=== PATIENT | female | born 1985 | race Caucasian/White ===

== ENCOUNTER → 2016-09-19 | Outpatient (CLI) | payer OTHER ==
[2016-09-19 10:15] LABS: BASO # 0.1 K/mm3 (0.0-0.2); BASO % 1.6 % (0.0-1.0); EOS # 0.2 K/mm3 (0.0-0.50); EOS % 2.3 % (0.0-3.0); LARGE UNSTAINED CELL # 0.2 K/mm3 (0.0-0.4); LARGE UNSTAINED CELL % 2.9 % (0.0-4.0); LYMPH # 3.2 K/mm3 (1.5-4.5); LYMPH % 38.1 % (24.0-44.0); MEAN CORPUSCULAR HGB CONC 33.4 g/dl (32.0-36.5); MEAN CORPUSCULAR VOLUME 83.9 fl (80.0-96.0); MONO # 0.5 K/mm3 (0.0-0.8); NEUTROPHILS # 3.9 K/mm3 (1.8-7.7); NEUTROPHILS % 49.1 % (36.0-66.0); PLATELET COUNT, AUTOMATED 297 k/mm3 (150-450); WHITE BLOOD COUNT 7.9 K/mm3 (4.0-10.0)
[2016-09-19 10:41] LABS: ALBUMIN 3.8 GM/DL (3.2-5.2); ALBUMIN/GLOBULIN RATIO 0.95 (1.00-1.93); ALKALINE PHOSPHATASE 31 U/L (45-117); ALT/SGPT 47 U/L (12-78); ANION GAP 4 MEQ/L (8-16); AST/SGOT 25 U/L (15-37); BILIRUBIN,TOTAL 0.3 MG/DL (0.2-1.0); BLOOD UREA NITROGEN 12 MG/DL (7-18); CARBON DIOXIDE LEVEL 33 MEQ/L (21-32); CHLORIDE LEVEL 105 MEQ/L (98-107); CHOLESTEROL LEVEL 202 MG/DL (<200); CREATININE FOR GFR 0.73 MG/DL (0.55-1.02); GLOMERULAR FILTRATION RATE > 60.0 (>60); GLUCOSE, FASTING 100 MG/DL (70-105); POTASSIUM SERUM 4.3 MEQ/L (3.5-5.1); SODIUM LEVEL 142 MEQ/L (136-145); TOTAL PROTEIN 7.8 GM/DL (6.4-8.2); TRIGLYCERIDES LEVEL 182 MG/DL (<150)
== END ==
LOC: M LAB 09:50
PROVIDERS: ATTEND Family Medicine
DX: E03.9 Hypothyroidism, unspecified (principal); I10 Essential (primary) hypertension

== ENCOUNTER → 2017-11-20 | Outpatient (CLI) | payer OTHER ==
[2017-11-20 09:52] LABS: BASO # 0.1 10^3/uL (0.0-0.2); BASO % 0.6 % (0.0-1.0); EOS # 0.4 10^3/uL (0.0-0.50); EOS % 4.1 % (0.0-3.0); HEMATOCRIT 39.5 % (36.0-47.0); HEMOGLOBIN 12.8 g/dl (12.0-16.0); IMMATURE GRANULOCYTE % 0.3 % (0-3.0); LYMPH # 3.5 10^3/uL (1.5-4.5); LYMPH % 36.6 % (24.0-44.0); MEAN CORPUSCULAR HEMOGLOBIN 27.3 pg (27.0-33.0); MEAN CORPUSCULAR HGB CONC 32.4 g/dl (32.0-36.5); MEAN CORPUSCULAR VOLUME 84.2 fl (80.0-96.0); MONO # 0.7 10^3/uL (0.0-0.8); MONO % 7.4 % (0.0-5.0); NEUTROPHILS # 4.8 10^3/uL (1.8-7.7); PLATELET COUNT, AUTOMATED 319 10^3/uL (150-450); RED BLOOD COUNT 4.69 10^6/uL (4.00-5.40); RED CELL DISTRIBUTION WIDTH 13.4 % (11.5-14.5); WHITE BLOOD COUNT 9.5 10^3/uL (4.0-10.0)
[2017-11-20 10:30] LABS: ALBUMIN 3.4 GM/DL (3.2-5.2); ALBUMIN/GLOBULIN RATIO 0.85 (1.00-1.93); ALKALINE PHOSPHATASE 25 U/L (45-117); ALT/SGPT 54 U/L (12-78); ANION GAP 7 MEQ/L (8-16); AST/SGOT 55 U/L (7-37); BILIRUBIN,TOTAL 0.3 MG/DL (0.2-1.0); BLOOD UREA NITROGEN 16 MG/DL (7-18); CALCIUM LEVEL 8.9 MG/DL (8.5-10.1); CARBON DIOXIDE LEVEL 31 MEQ/L (21-32); CHLORIDE LEVEL 102 MEQ/L (98-107); CHOLESTEROL LEVEL 187 MG/DL (<200); CHOLESTEROL RISK RATIO 4.348 (<5); CREATININE FOR GFR 0.71 MG/DL (0.55-1.30); FREE T4 1.24 NG/DL (0.76-1.46); GLOMERULAR FILTRATION RATE > 60.0 (>60); GLUCOSE, FASTING 113 MG/DL (70-100); HDL CHOLESTEROL 43 MG/DL (>40); LDL CHOLESTEROL 104.8 MG/DL (<100); NON-HDL-C 144 MG/DL; POTASSIUM SERUM 3.9 MEQ/L (3.5-5.1); SODIUM LEVEL 140 MEQ/L (136-145); TOTAL PROTEIN 7.4 GM/DL (6.4-8.2); TRIGLYCERIDES LEVEL 196 MG/DL (<150)
== END ==
LOC: M LAB 09:11
DX: I10 Essential (primary) hypertension (principal); E03.9 Hypothyroidism, unspecified
CPT/HCPCS: 84443

== ENCOUNTER → 2018-10-04 | Outpatient (CLI) | payer BC ==
[2018-10-04 11:02] LABS: BLOOD UREA NITROGEN 12 MG/DL (7-18); CALCIUM LEVEL 9.2 MG/DL (8.5-10.1); CARBON DIOXIDE LEVEL 28 MEQ/L (21-32); CHLORIDE LEVEL 103 MEQ/L (98-107); FREE T4 1.14 NG/DL (0.76-1.46); GLOMERULAR FILTRATION RATE > 60.0 (>60); GLUCOSE, FASTING 105 MG/DL (70-100); POTASSIUM SERUM 4.4 MEQ/L (3.5-5.1); SODIUM LEVEL 139 MEQ/L (136-145)
== END ==
LOC: M LAB 09:58
PROVIDERS: ATTEND Physician Assistant
DX: I10 Essential (primary) hypertension (principal); E03.9 Hypothyroidism, unspecified

== ENCOUNTER → 2018-12-21 | Outpatient (CLI) | payer BC ==
[2018-12-21 11:02] LABS: FREE T4 1.14 NG/DL (0.76-1.46); THYROID STIMULATING HORMONE 4.05 uIU/ML (0.358-3.740)
== END ==
LOC: M LAB 09:48
PROVIDERS: ATTEND Physician Assistant
DX: E03.9 Hypothyroidism, unspecified (principal)

== ENCOUNTER → 2019-06-10 | Outpatient (CLI) | payer BC ==
[2019-06-10 11:57] LABS: ALBUMIN 3.2 GM/DL (3.2-5.2); ALT/SGPT 24 U/L (12-78); BILIRUBIN,TOTAL 0.2 MG/DL (0.2-1.0); BLOOD UREA NITROGEN 13 MG/DL (7-18); CALCIUM LEVEL 9.4 MG/DL (8.5-10.1); CARBON DIOXIDE LEVEL 29 MEQ/L (21-32); CHLORIDE LEVEL 102 MEQ/L (98-107); CHOLESTEROL LEVEL 164 MG/DL (<200); CHOLESTEROL RISK RATIO 3.215 (<5); CREATININE FOR GFR 0.66 MG/DL (0.55-1.30); FREE T4 1.15 NG/DL (0.76-1.46); GLOMERULAR FILTRATION RATE > 60.0 (>60); GLUCOSE, FASTING 117 MG/DL (70-100); HDL CHOLESTEROL 51 MG/DL (>40); LDL CHOLESTEROL 81 MG/DL (<100); NON-HDL-C 113 MG/DL; POTASSIUM SERUM 3.7 MEQ/L (3.5-5.1); SODIUM LEVEL 140 MEQ/L (136-145); TOTAL PROTEIN 7.7 GM/DL (6.4-8.2); TRIGLYCERIDES LEVEL 160 MG/DL (<150)
== END ==
LOC: M LAB 09:40
PROVIDERS: ATTEND Physician Assistant
DX: I10 Essential (primary) hypertension (principal)

== ENCOUNTER → 2019-09-09 | Outpatient (CLI) | payer BC ==
[2019-09-09 13:09] LABS: ALBUMIN 3.1 GM/DL (3.2-5.2); ALT/SGPT 29 U/L (12-78); BILIRUBIN,TOTAL 0.2 MG/DL (0.2-1.0); BLOOD UREA NITROGEN 13 MG/DL (7-18); CALCIUM LEVEL 8.9 MG/DL (8.5-10.1); CARBON DIOXIDE LEVEL 28 MEQ/L (21-32); CHLORIDE LEVEL 101 MEQ/L (98-107); CREATININE FOR GFR 0.74 MG/DL (0.55-1.30); FREE T4 1.26 NG/DL (0.76-1.46); GLOMERULAR FILTRATION RATE > 60.0 (>60); GLUCOSE, FASTING 105 MG/DL (70-100); POTASSIUM SERUM 3.8 MEQ/L (3.5-5.1); SODIUM LEVEL 137 MEQ/L (136-145); TOTAL PROTEIN 7.7 GM/DL (6.4-8.2)
[2019-09-09 13:23] LABS: HEMOGLOBIN A1c 8.6 %
== END ==
LOC: M LAB 11:41
PROVIDERS: ATTEND Family Medicine
DX: R73.01 Impaired fasting glucose (principal)

== ENCOUNTER → 2019-12-07 | Outpatient (CLI) | payer BC ==
[2019-12-07 13:13] LABS: CREATININE, URINE 33.8 MG/DL; MALB URINE SIEMENS 14.6 MG/L; MAU/CREAT RATIO 43.1 MCG/MG (0.0-30.0)
[2019-12-07 13:14] LABS: ALBUMIN 3.3 GM/DL (3.2-5.2); ALT/SGPT 34 U/L (12-78); BILIRUBIN,TOTAL 0.4 MG/DL (0.2-1.0); BLOOD UREA NITROGEN 12 MG/DL (7-18); CALCIUM LEVEL 9.3 MG/DL (8.5-10.1); CARBON DIOXIDE LEVEL 30 MEQ/L (21-32); CHLORIDE LEVEL 100 MEQ/L (98-107); CREATININE FOR GFR 0.63 MG/DL (0.55-1.30); FREE T4 1.28 NG/DL (0.76-1.46); GLOMERULAR FILTRATION RATE > 60.0 (>60); GLUCOSE, FASTING 112 MG/DL (70-100); POTASSIUM SERUM 3.6 MEQ/L (3.5-5.1); SODIUM LEVEL 134 MEQ/L (136-145); TOTAL PROTEIN 7.9 GM/DL (6.4-8.2)
[2019-12-07 13:25] LABS: HEMOGLOBIN A1c 8.2 %
== END ==
LOC: M LAB 11:35
PROVIDERS: ATTEND Family Medicine
DX: E03.9 Hypothyroidism, unspecified (principal); E11.9 Type 2 diabetes mellitus without complications

== ENCOUNTER → 2020-05-11 | Outpatient (CLI) | payer BC ==
[2020-05-11 11:39] LABS: ALBUMIN 3.4 GM/DL (3.2-5.2); ALT/SGPT 36 U/L (12-78); BILIRUBIN,TOTAL 0.3 MG/DL (0.2-1.0); BLOOD UREA NITROGEN 14 MG/DL (7-18); CALCIUM LEVEL 9.2 MG/DL (8.5-10.1); CARBON DIOXIDE LEVEL 24 MEQ/L (21-32); CHLORIDE LEVEL 103 MEQ/L (98-107); CREATININE FOR GFR 0.68 MG/DL (0.55-1.30); FREE T4 1.35 NG/DL (0.76-1.46); GLOMERULAR FILTRATION RATE > 60.0 (>60); GLUCOSE, FASTING 123 MG/DL (70-100); POTASSIUM SERUM 4.6 MEQ/L (3.5-5.1); SODIUM LEVEL 138 MEQ/L (136-145); TOTAL PROTEIN 7.8 GM/DL (6.4-8.2)
[2020-05-11 13:00] LABS: HEMOGLOBIN A1c 8.4 %
== END ==
LOC: M LAB 09:38
PROVIDERS: ATTEND Nurse Practitioner Family
DX: E03.9 Hypothyroidism, unspecified (principal); E11.9 Type 2 diabetes mellitus without complications

== ENCOUNTER → 2020-09-21 | Outpatient (CLI) | payer BC ==
[2020-09-21 11:32] LABS: HEMOGLOBIN A1c 7.2 %
[2020-09-21 11:53] LABS: MALB URINE SIEMENS 22.2 MG/L; MAU/CREAT RATIO 12.9 MCG/MG (0.0-30.0)
[2020-09-21 12:02] LABS: ALBUMIN 3.3 GM/DL (3.2-5.2); ALT/SGPT 38 U/L (12-78); BILIRUBIN,TOTAL 0.2 MG/DL (0.2-1.0); BLOOD UREA NITROGEN 13 MG/DL (7-18); CALCIUM LEVEL 9.4 MG/DL (8.5-10.1); CARBON DIOXIDE LEVEL 29 MEQ/L (21-32); CHLORIDE LEVEL 103 MEQ/L (98-107); CHOLESTEROL LEVEL 199 MG/DL (<200); CHOLESTEROL RISK RATIO 3.901 (<5); CREATININE FOR GFR 0.63 MG/DL (0.55-1.30); FREE T4 1.36 NG/DL (0.76-1.46); GLOMERULAR FILTRATION RATE > 60.0 (>60); GLUCOSE, FASTING 141 MG/DL (70-100); HDL CHOLESTEROL 51 MG/DL (>40); LDL CHOLESTEROL 108 MG/DL (<100); NON-HDL-C 148 MG/DL; POTASSIUM SERUM 4.3 MEQ/L (3.5-5.1); SODIUM LEVEL 138 MEQ/L (136-145); TOTAL PROTEIN 7.7 GM/DL (6.4-8.2); TRIGLYCERIDES LEVEL 201 MG/DL (<150)
== END ==
LOC: M LAB 10:15
PROVIDERS: ATTEND Nurse Practitioner Family
DX: E03.9 Hypothyroidism, unspecified (principal); E11.9 Type 2 diabetes mellitus without complications

== ENCOUNTER 2021-01-29 16:19 | Inpatient (IN) | payer BC ==
[~2021-01-29] VITALS: Ht 177.8 cm; Wt 121.5 kg
[2021-01-29] MEDS ORDERED: TRI-TAB PO (16:25)
[2021-01-29] MEDS ORDERED: CHLO125TA PO (16:25)
[2021-01-29] MEDS ORDERED: LISI10TA22 PO (16:25)
[2021-01-29] MEDS ORDERED: METF-838 PO (16:25)
[2021-01-29] MEDS ORDERED: LEVO125T4 PO (16:25)
[2021-01-29 17:07] LABS: HEMATOCRIT 41.9 % (36.0-47.0); HEMOGLOBIN 13.5 g/dl (12.0-15.5); MEAN CORPUSCULAR HEMOGLOBIN 26.8 pg (27.0-33.0); MEAN CORPUSCULAR HGB CONC 32.2 g/dl (32.0-36.5); MEAN CORPUSCULAR VOLUME 83.1 fl (80.0-96.0); PLATELET COUNT, AUTOMATED 343 10^3/uL (150-450); RED BLOOD COUNT 5.04 10^6/uL (4.00-5.40)
[2021-01-29 17:10] LABS: WHITE BLOOD COUNT 20.3 10^3/uL (4.0-10.0)
[2021-01-29 17:33] LABS: ATYPICAL LYMPH 4 % (0-5); BASOPHILS 1 % (0-1); LYMPHOCYTES 15 % (16-44); MONOCYTES 6 % (0-5); NEUTROPHILS 72 % (28-66); PLATELET ESTIMATE NORMAL (NORMAL)
[2021-01-29 17:41] LABS: ALBUMIN 3.3 GM/DL (3.2-5.2); BILIRUBIN,DIRECT 0.1 MG/DL (0.0-0.2); BILIRUBIN,TOTAL 0.4 MG/DL (0.2-1.0)
[2021-01-29] MEDS ORDERED: ISOVUE-370 76% 100ML VIAL As Ordered ONE (18:39)
[2021-01-29] MEDS ORDERED: KETOROLAC 30 MG/ML 1ML VIAL IV ONE (18:40)
[2021-01-29] MEDS ORDERED: ONDANSETRON 4MG/2ML VIAL IV ONE (18:40)
[2021-01-29] MEDS ORDERED: NS 1,000 ML IV ONE (18:40)
--- NOTE | 2021-01-29 19:29 | REPVR ---
PROCEDURE INFORMATION: Exam: CT Abdomen And Pelvis With Contrast Exam date and time: 01/29/2021 6:49 PM Age: 35 years old Clinical indication: Abdominal pain; Additional info: Rlq pain, leukocytosis vomiting, RO appendicitis TECHNIQUE: Imaging protocol: Computed tomography of the abdomen and pelvis with contrast. Radiation optimization: All CT scans at this facility use at least one of these dose optimization techniques: automated exposure control; mA and/or kV adjustment per patient size (includes targeted exams where dose is matched to clinical indication); or iterative reconstruction. Contrast material: ISOVUE 370; Contrast volume: 100 ml; Contrast route: INTRAVENOUS (IV); COMPARISON: No relevant prior studies available. FINDINGS: Liver: There is a diffuse decrease in hepatic parenchymal density, consistent with steatosis. Inflammatory changes in the hepatic flexure likely reactive related to adjacent gallbladder pathology. Primary colonic inflammation/infection not excluded in to be evaluated clinically. Gallbladder and bile ducts: Diffuse thickening of the gallbladder wall with pericholecystic inflammation and minimal pericholecystic fluid. No discrete calculi demonstrated. Findings worrisome for acute cholecystitis. Pancreas: Normal. No ductal dilation. Spleen: Normal. No splenomegaly. Adrenal glands: Normal. No mass. Kidneys and ureters: Normal. No hydronephrosis. Stomach and bowel: See "Liver" finding. Appendix: No evidence of appendicitis. Intraperitoneal space: There is minimal fluid in the cul-de-sac most likely physiologic. Clinical correlation to exclude other causes of cul-de-sac fluid suggested. Vasculature: Unremarkable. No abdominal aortic aneurysm. Lymph nodes: Unremarkable. No enlarged lymph nodes. Urinary bladder: Unremarkable as visualized. Reproductive: Unremarkable as visualized. Bones/joints: Moderate central spinal stenosis L3-L4 and severe central spinal stenosis L4-L5. Mild disc space narrowing L5-S1. Soft tissues: Unremarkable. IMPRESSION: 1. There is a diffuse decrease in hepatic parenchymal density, consistent with steatosis. 2. Diffuse thickening of the gallbladder wall with pericholecystic inflammation and minimal pericholecystic fluid. No discrete calculi demonstrated. Findings worrisome for acute cholecystitis. 3. Inflammatory changes in the hepatic flexure likely reactive related to adjacent gallbladder pathology. Primary colonic inflammation/infection not excluded in to be evaluated clinically. Electronically signed by: Kang Vance On 01/29/2021 19:28:58 PM
[2021-01-29] MEDS ORDERED: PIPERACILLIN/TAZOBACTAM SOD 3.375 GM in D5W MINI-BAG PLUS 50 ML IV ONE (19:45)
--- NOTE | 2021-01-29 20:34 | HPEPDOC ---
[facility] Medical History & Physical Date of Admission January 29, 2021 Date of Service: January 29, 2021 History and Physical CHIEF COMPLAINT: vomiting HISTORY OF PRESENT ILLNESS: 35 yo F with a PMHx of DM2, HTN, hypothyroidism, presented to the ER with a 24 hour history of NBNB vomiting and diarrhea with associated RUQ sharp stabbing abdominal olvera and reduced appetite. Patient's last meal was a steak with rice. She denies chest pain, shortness of breath, palpitations, hemoptysis or fevers/chills. She is afebrile, but lab work indicates a WBC of 20.5. No transaminitis or lipase elevation noted. CT abdomen and pelvis with IV contrast in the ER showing findings concerning for acute cholecystitis. Dr. Alfaro was consulted from the ER. Patient will be admitted to hospitalist service for IV antibiotics and pain control with surgical consultation. PAST MEDICAL HISTORY: DM2 HTN Hypothyroidism PAST SURGICAL HISTORY: [place] tooth extraction SOCIAL HISTORY: Denies etoh use Denies smoking/tobacco use Denies illicit drug use FAMILY HISTORY: reviewed with patient, denies pertinent history ALLERGIES: Please see below. REVIEW OF SYSTEMS: 10 point ROS was completed, relevant findings are noted in the HPI. HOME MEDICATIONS: Please see below. PHYSICAL EXAMINATION: VITAL SIGNS: please see below GENERAL APPEARANCE: [appears well, non toxic, not in distress, comfortable. HEENT: PERRLA, EOMI CARDIOVASCULAR: RRR, normal S1, S2 LUNGS: CTAB, good inspiratory effort, no rales or wheezes. ABDOMEN: positive Multani's sign, non distended, no guarding, no rigidity. No organomegaly identified, BS+. MUSCULOSKELETAL: normal ROM, no joint deformity EXTREMITIES: no edema, no cyanosis NEUROLOGICAL: no focal neuro deficits. CN2-12 intact. LABORATORY DATA: See below. IMAGING: CT abdomen pelvis with IV contrast (01/29/21): 1. There is a diffuse decrease in hepatic parenchymal density, consistent with steatosis. 2. Diffuse thickening of the gallbladder wall with pericholecystic inflammation and minimal pericholecystic fluid. No discrete calculi demonstrated. Findings worrisome for acute cholecystitis. 3. Inflammatory changes in the hepatic flexure likely reactive related to adjacent gallbladder pathology. Primary colonic inflammation/infection not excluded in to be evaluated clinically. MICROBIOLOGY: Please see below. ASSESSMENT: 35 yo F with a PMHx of DM2, HTN, hypothyroidism, presented to the ER with a 24 hour history of NBNB vomiting and diarrhea with associated RUQ sharp stabbing abdominal olvera and reduced appetite. Patient admitted for management of acute cholecystitis with IV antibiotics, pain control with surgical consultation. . PLAN: #RUQ pain 2/2 likely acute cholecystis - patient is afebrile, with WBC 20.5 - CT showing pericholecystic fluid, inflammation concerning for acute cholecystitis - Dr. Alfaro was consulted from the ER. - Recommendations appreciated, consult placed - patient started on zosyn. - ordered blood cultures, abx had been administered. - bowel rest - pain control with morphine for breakthrough, oxycodone and tylenol prn DM2 - ISS, FSBS AC and HS - takes metformin at home - hypoglycemia protocol HTN - takes chlorthalidone 25 mg daily and lisinopril 10 mg daily - is on IVF while NPO, will hold chlorthalidone - c/w lisinopril. BP appropriate at this time, improved with pain control Hypothyroidism - resume home dose levothyroxine DVT ppx: heparin 5000 units q8h, TEDs. Dispo: pending clinical improvement. Vital Signs Vital Signs Date Time Temp Pulse Resp B/P (MAP) Pulse Ox O2 Delivery O2 Flow Rate FiO2 01/29/21 19:23 97.9 109 18 122/66 (84) 96 Room Air Laboratory Data Labs 24H Laboratory Tests 2 01/29/21 16:39: Neutrophils (%) (Auto) , Nucleated Red Blood Cells % (auto) 0.0, Neutrophils 72H, Band Neutrophils 2, Lymphocytes (Manual) 15L, Monocytes (Manual) 6H, Basophils (Manual) 1, Atypical Lymphocytes 4, Platelet Estimate NORMAL, Total Bilirubin 0.4, Direct Bilirubin 0.1, Aspartate Amino Transf (AST/SGOT) 15, A lanine Aminotransferase (ALT/SGPT) 17, Alkaline Phosphatase 32L, Total Protein 8.0, Albumin 3.3, Albumin/Globulin Ratio 0.7L, Lipase 66L 01/29/21 16:58: POC Glucose (Misc Panel) 185H, POC Sodium (Misc Panel) 137, POC Potassium (Misc Panel) 3.1L, POC Chloride (Misc Panel) 96L, POC Total CO2 (Misc Panel) 28.0H, POC Blood Urea Nitrogen (Misc Panel 10, POC Ionized Calcium (Misc Panel) 4.7, POC Creatinine (Misc Panel) 0.7, POC Hematocrit (Misc Panel) 42.0 01/29/21 17:00: POC Beta HCG, Quantitative < 5.0 01/29/21 18:41: Coronavirus (COVID-19)(PCR) NEGATIVE CBC/BMP Laboratory Tests 01/29/21 16:39 Home Medications Scheduled Chlorthalidone (Chlorthalidone) 25 Mg Tablet, 25 MG PO DAILY Levothyroxine Sodium (Levothyroxine Sodium) 125 Mcg Tablet, 125 MCG PO DAILY Lisinopril (Lisinopril) 10 Mg Tablet, 10 MG PO DAILY Metformin HCl (Metformin HCl ER) 500 Mg Tab.er.24h, 1,000 MG PO BID Norgestimate-Ethinyl Estradiol (Tri-Sprintec Tablet) 1 Each Tablet, 1 TAB PO QHS Allergies Coded Allergies: No Known Drug Allergies (Verified Allergy, Unknown, 01/29/21) A-FIB/CHADSVASC A-FIB History Current/History of A-Fib/PAF?: No Current PO Anticoag Therapy: No HAILEY OAKLEY MD January 29, 2021 20:34
[2021-01-29] MEDS ORDERED: DEXTROSE 50% 50 ML SYRINGE IV PRN (20:35)
[2021-01-29] MEDS ORDERED: GLUCOSE 4GM CHEW TABLET PO PRN (20:35)
[2021-01-29] MEDS ORDERED: ACETAMINOPHEN TAB 650MG DOSE (2X325MG) PO PRN (20:35)
[2021-01-29] MEDS ORDERED: MOM 30ML SUSPENSION UDC PO PRN (20:35)
[2021-01-29] MEDS ORDERED: oxyCODONE 5MG TAB PO PRN (20:35)
[2021-01-29] MEDS ORDERED: MAALOX 30 ML SUSP *UDC PO PRN (20:35)
[2021-01-29] MEDS ORDERED: MORPHINE 4 MG/ML 1ML VIAL/SYRINGE (J2270) IV PRN (20:35)
[2021-01-29] MEDS ORDERED: GLUCAGON INJ 1MG VIAL SC PRN (20:35)
[2021-01-29] MEDS: HumaLOG INSULIN (NovoLOG) PER UNIT SC SCH (21:32)
[2021-01-29] MEDS: LR 1,000 ML IV SCH (21:33)
[2021-01-29] MEDS: DOCUSATE SODIUM 100MG CAPSULE PO SCH (21:34)
[2021-01-29 22:18] VITALS: BP 119/70
[2021-01-29] MEDS: PIPERACILLIN/TAZOBACTAM SOD 4.5 GM in D5W MINI-BAG PLUS 50 ML IV SCH (23:48)
[2021-01-30 05:51] LABS: BASO # 0.1 10^3/uL (0.0-0.2); BASO % 0.5 % (0.0-1.0); EOS # 0.2 10^3/uL (0.0-0.5); EOS % 1.2 % (0.0-3.0); HEMATOCRIT 36.8 % (36.0-47.0); HEMOGLOBIN 11.9 g/dl (12.0-15.5); LYMPH # 3.1 10^3/uL (1.5-5.0); LYMPH % 22.1 % (24.0-44.0); MEAN CORPUSCULAR HEMOGLOBIN 27.5 pg (27.0-33.0); MEAN CORPUSCULAR HGB CONC 32.3 g/dl (32.0-36.5); MONO # 1.2 10^3/uL (0.0-0.8); MONO % 8.3 % (2.0-8.0); NEUTROPHILS # 9.3 10^3/uL (1.5-8.5); NEUTROPHILS % 67.6 % (36.0-66.0); PLATELET COUNT, AUTOMATED 271 10^3/uL (150-450); RED BLOOD COUNT 4.33 10^6/uL (4.00-5.40); WHITE BLOOD COUNT 13.8 10^3/uL (4.0-10.0)
[2021-01-30 06:00] VITALS: BP 135/79
[2021-01-30] MEDS: HEPARIN SOD (PORCINE) 5000UNITS/ML 1ML VIAL/SYRINGE SC SCH ×3 (06:00→21:00)
[2021-01-30 06:26] LABS: ALBUMIN 2.7 GM/DL (3.2-5.2); ALT/SGPT 16 U/L (12-78); BILIRUBIN,TOTAL 0.4 MG/DL (0.2-1.0); BLOOD UREA NITROGEN 11 MG/DL (7-18); CALCIUM LEVEL 8.9 MG/DL (8.5-10.1); CARBON DIOXIDE LEVEL 29 MEQ/L (21-32); CHLORIDE LEVEL 104 MEQ/L (98-107); CREATININE FOR GFR 0.69 MG/DL (0.55-1.30); GLOMERULAR FILTRATION RATE > 60.0 (>60); GLUCOSE, FASTING 171 MG/DL (70-100); MAGNESIUM LEVEL 1.6 MG/DL (1.8-2.4); POTASSIUM SERUM 3.3 MEQ/L (3.5-5.1); SODIUM LEVEL 140 MEQ/L (136-145); TOTAL PROTEIN 6.5 GM/DL (6.4-8.2)
[2021-01-30] MEDS: PIPERACILLIN/TAZOBACTAM SOD 4.5 GM in D5W MINI-BAG PLUS 50 ML IV SCH ×3 (06:37→18:46)
[2021-01-30] MEDS: LEVOTHYROXINE 125MCG TABLET (0.125MG) PO SCH (06:37)
[2021-01-30] MEDS: HumaLOG INSULIN (NovoLOG) PER UNIT SC SCH ×4 (07:30→20:55)
[2021-01-30] MEDS ORDERED: KETOROLAC 30 MG/ML 1ML VIAL IV PRN (07:30)
[2021-01-30] MEDS ORDERED: MAG SULF 1GM/100ML (MAG RUN) 1 GM in IV 1 EA IV ONE (08:00)
[2021-01-30] MEDS ORDERED: POTASSIUM CHLORIDE 10 MEQ SR TABLET PO ONE (08:00)
[2021-01-30] MEDS ORDERED: CHLORTHALIDONE 25 MG TAB PO SCH (09:00)
[2021-01-30] MEDS: DOCUSATE SODIUM 100MG CAPSULE PO SCH ×2 (09:52→20:58)
[2021-01-30] MEDS: LR 1,000 ML IV SCH (09:54)
--- NOTE | 2021-01-30 11:28 | IPNPDOC ---
Text Note Date of Service The patient was seen on 01/30/21. NOTE S Patient was seen and examined at bedside this morning. She reported her abd pain has improved from 10/10 to 8/10 today. Her nausea and vomiting has resolved after her admission. She denied recent fever, chills, CP, SOB, leg swelling and urinary symptoms, but noted 1 episode of loose stool this morning. She reported that she gets occasional diarrhea 1-2 times monthly. She has tolerated clear liquid diet well. O VITAL SIGNS: See below GENERAL APPEARANCE: Revealed 35 y/o F laying supine on bed, alert & oriented x3, in no Acute Distress. HEENT Exam: Normocephalic and atraumatic, PERRL, conjunctiva & lids normal, EOMI, anicteric sclera, mucous membr. moist/pink, pharynx normal, nares patent. Dental cavities noted NECK: Supple without lymphadenopathy, JVD, thyromegaly LUNGS: Clear to auscultation bilaterally with full breath sounds without rales, wheezing, and crackles. CARDIOVASCULAR: Regular rate and rhythm, normal S1 & S2 without gallops, murmurs, rubs ABDOMEN: Soft, RUQ tender to light palpation, RLQ and epigastric mildly tender to deep palpation, non-distended, bowel sounds present. EXTREMITIES: 2+ pulses in all extremities. No clubbing, cyanosis, edema, tenderness SKIN: Normal turgor and temperature. No rash, lesion MUSCULOSKELETAL: Moving all extremities without tenderness. NEUROLOGICAL: Normal speech with no signs of gross focal neurologic deficit. PSYCHIATRIC: Normal mood and affect ASSESSMENT: Patient is a 35 yo F with a PMHx of DM2, HTN, hypothyroidism, presented to the ER with a 24 hour history of vomiting and diarrhea with associated RUQ sharp stabbing abdominal olvera and reduced appetite. CT abd/pelvis showed "diffuse thickening of gallbladder wall with pericholecystic inflammation and minimal pericholecystic fluid worrisome for acute cholecystitis." Patient admitted for management of acute cholecystitis with IV antibiotics, pain control with surgical consultation, and bowel rest with clear liquid diet. PLAN: #Acute cholecystitis - CT showing pericholecystic fluid, inflammation concerning for acute cholecystitis - Dr. Alfaro was consulted, recommended inpat medical management with outpatient follow up with general surgery - recommendations appreciated, consult placed - patient currently on day 2 of Zosyn. - Leukocytosis trended down from 20.3 to 13.8 - F/u BCx x2 - Continue bowel rest with clear liquid diet, patient tolerated PO liquid well - discontinue IVF - pain control with morphine for breakthrough, oxycodone and tylenol prn #DM2 - Cont SSI, FSBS AC and HS - takes metformin at home, hold metformin - hypoglycemia protocol #HTN - Patient BP stable - Cont to hold chlorthalidone - Cont lisinopril #Hypokalemia and hypomagnesemia - likely 2/2 vomiting and decreased PO intake - Repleted - Cont to monitor #Hypothyroidism - resume home dose levothyroxine DVT ppx: heparin 5000 units q8h, TEDs. Dispo: pending clinical improvement. VS,Fishbone, I+O VS, Fishbone, I+O Laboratory Tests 01/29/21 16:39 01/30/21 05:41 Vital Signs Date Time Temp Pulse Resp B/P (MAP) Pulse Ox O2 Delivery O2 Flow Rate FiO2 01/30/21 09:55 117/73 01/30/21 06:00 97.7 96 18 96 Room Air I&O- Last 24 Hours up to 6 AM 01/30/21 06:00 Intake Total 1215 ml Output Total 350 ml Balance 865 ml GME ATTESTATION GME ATTESTATION My faculty preceptor for this patient encounter was physically present during the encounter and was fully available. All aspects of the patient interview, examination, medical decision making process, and medical care plan development were reviewed and approved by the faculty preceptor. The faculty preceptor is aware and concurs with the plan as stated in the body of this note and will attest to such by his/her cosignature. ATTENDING NOTE I, Jesus Calabrese MD, have independently examined this patient and performed my own physical exam, as well as reviewed the documentation and edited where necessary. I have discussed in detail with the resident / student the findings and plan of treatment as documented by the resident / student and edited their note. I agree with their findings and treatment plan and have edited their documentation. DYKESLUZ MARIAK OMS-3 January 30, 2021 11:28 MELINDA NAIR D.O. January 30, 2021 17:56 JESUS CALABRESE MD Feb 05, 2021 09:43
[2021-01-30 14:00] VITALS: BP 130/74
[2021-01-30 22:00] VITALS: BP 117/73
[2021-01-31] MEDS: PIPERACILLIN/TAZOBACTAM SOD 4.5 GM in D5W MINI-BAG PLUS 50 ML IV SCH ×2 (00:52→06:03)
[2021-01-31 06:00] VITALS: BP 126/86
[2021-01-31] MEDS: LEVOTHYROXINE 125MCG TABLET (0.125MG) PO SCH (06:03)
[2021-01-31] MEDS: HEPARIN SOD (PORCINE) 5000UNITS/ML 1ML VIAL/SYRINGE SC SCH (06:03)
[2021-01-31 06:34] LABS: BASO # 0.1 10^3/uL (0.0-0.2); BASO % 0.6 % (0.0-1.0); EOS # 0.4 10^3/uL (0.0-0.5); EOS % 3.4 % (0.0-3.0); HEMATOCRIT 36.1 % (36.0-47.0); HEMOGLOBIN 11.4 g/dl (12.0-15.5); LYMPH # 2.9 10^3/uL (1.5-5.0); LYMPH % 25.2 % (24.0-44.0); MEAN CORPUSCULAR HEMOGLOBIN 27.3 pg (27.0-33.0); MEAN CORPUSCULAR HGB CONC 31.6 g/dl (32.0-36.5); MEAN CORPUSCULAR VOLUME 86.6 fl (80.0-96.0); MONO # 0.9 10^3/uL (0.0-0.8); MONO % 7.9 % (2.0-8.0); NEUTROPHILS # 7.1 10^3/uL (1.5-8.5); NEUTROPHILS % 62.5 % (36.0-66.0); PLATELET COUNT, AUTOMATED 257 10^3/uL (150-450); RED BLOOD COUNT 4.17 10^6/uL (4.00-5.40); WHITE BLOOD COUNT 11.4 10^3/uL (4.0-10.0)
[2021-01-31 07:07] LABS: ALBUMIN 2.6 GM/DL (3.2-5.2); ALT/SGPT 12 U/L (12-78); BILIRUBIN,TOTAL 0.3 MG/DL (0.2-1.0); BLOOD UREA NITROGEN 7 MG/DL (7-18); CARBON DIOXIDE LEVEL 29 MEQ/L (21-32); CHLORIDE LEVEL 106 MEQ/L (98-107); GLOMERULAR FILTRATION RATE > 60.0 (>60); GLUCOSE, FASTING 153 MG/DL (70-100); MAGNESIUM LEVEL 1.7 MG/DL (1.8-2.4); POTASSIUM SERUM 3.6 MEQ/L (3.5-5.1); SODIUM LEVEL 142 MEQ/L (136-145); TOTAL PROTEIN 6.4 GM/DL (6.4-8.2)
[2021-01-31] MEDS: HumaLOG INSULIN (NovoLOG) PER UNIT SC SCH (07:30)
[2021-01-31] MEDS: DOCUSATE SODIUM 100MG CAPSULE PO SCH (07:56)
[2021-01-31 08:00] VITALS: BP 128/78
[2021-01-31] MEDS ORDERED: MAG SULF 1GM/100ML (MAG RUN) 1 GM in IV 1 EA IV ONE (08:00)
--- NOTE | 2021-01-31 08:45 | CR ---
CONSULTATION DATE: 01/30/2021 CHIEF COMPLAINT: Abdominal pain. REASON FOR CONSULTATION: The patient is a 35-year-old female who presented to the emergency room with a 24 hour history of nausea, vomiting, and increasing right upper quadrant abdominal pains, as well as decreased appetite. She denies any chest pain or shortness of breath. No fevers or chills. She has not had any fevers in the emergency room. Her white count in the ER was 20.5. LFTs were normal. However, a CT did show findings concerning for acute cholecystitis. It also did show inflammation around the colon and around the hepatic fossa. Because of that, I did not feel that she was a candidate for emergent surgery and had her admitted to the medicine service overnight. This morning, her pain is already improving. Labs have already improved. She is feeling better just with some pain control and some antibiotics. She denies ever having symptoms like this in the past. No known history of gallbladder disease prior to this. PAST MEDICAL HISTORY: 1. Diabetes. 2. Hypertension. 3. Hypothyroidism. PAST SURGICAL HISTORY: [place] teeth removal. SOCIAL HISTORY: Negative. FAMILY HISTORY: Non-contributory. ALLERGIES: None. HOME MEDICATIONS: Please see med rec. REVIEW OF SYSTEMS: Pertinent positives and negatives as stated in the HPI. PHYSICAL EXAMINATION: GENERAL: The patient is alert and oriented x3, in no acute distress. VITAL SIGNS: Temperature 97.7, pulse 96, respirations 18, blood pressure 135/79, pulse ox 96% on room air. HEENT: Pupils equally round, reactive to light and accommodation. HEART: S1, S2. Regular rate and rhythm. LUNGS: Clear to auscultation bilaterally. ABDOMEN: Soft. Tender to palpation in the right upper quadrant with localized guarding and no rigidity. EXTREMITIES: No clubbing, cyanosis, or edema. LABORATORY DATA: White count 13.8 down from 20.3 on admission. Hemoglobin 11.9, platelets 271,000. Total bilirubin 0.4, AST 10, ALT 16, alkaline phosphatase 25. IMAGING DATA: CT abdomen and pelvis showed diffuse thickening of the gallbladder wall with pericholecystic inflammation and minimal pericholecystic fluid. No discrete calculi are demonstrated. There are inflammatory changes in the hepatic flexure likely reactive related to the adjacent gallbladder. ASSESSMENT AND PLAN: The patient is a 35-year-old female with acute cholecystitis. Recommendation is to treat with intravenous (IV) fluids, antibiotics, and a clear liquid diet. Once her pain improves and labs improve, she will be stable to be discharged home. She will follow-up with me in the office to schedule an outpatient surgery in about four to six weeks. If over the next 24-48 hours her symptoms worsen or her labs worsen, then she may require an urgent procedure. However, that will run very high risk of injury due to the severe inflammation in the surrounding structures. This was discussed in detail with her. She understands and agrees. We will follow-up with her in the morning and see how she is doing.
[2021-01-31] MEDS ORDERED: AMOX875T2 PO (09:02)
--- NOTE | 2021-01-31 09:06 | IPNPDOC ---
Text Note Date of Service The patient was seen on 01/31/21. NOTE Gen. surgery. Dr. Alfaro. The patient is a 35-year-old female admitted with acute cholecystitis. This morning, she reports her pain is significantly improved. She denies nausea or vomiting. She has been tolerating clear liquids. Afebrile. VSS Sitting on side of bed, no acute distress MMM Abdomen. Soft, mild tenderness in the right upper quadrant but improved compared with yesterday. WBC 11.4, down trending Assessment/plan Acute cholecystitis. The patient is reviewed and examined as per Dr. Alfaro. The patient's right upper quadrant pain has continued to improve. She is tolerating clear liquids over the past 24 hours. Plan to advance to soft diet. If tolerating, the patient would be okay for discharge from surgical standpoint. Finish course of oral antibiotics as outpatient. Follow-up with Dr. Alfaro in 1 week with tentative plan to arrange elective cholecystectomy in 4-6 weeks. VS,[place], I+O VS, [place], I+O Laboratory Tests 01/31/21 06:18 Vital Signs Date Time Temp Pulse Resp B/P (MAP) Pulse Ox O2 Delivery O2 Flow Rate FiO2 01/31/21 08:00 128/78 01/31/21 06:00 98.0 89 16 97 Room Air I&O- Last 24 Hours up to 6 AM 01/31/21 05:59 Intake Total 2140 ml Output Total 1550 ml Balance 590 ml Jud Jennings January 31, 2021 09:06
--- NOTE | 2021-01-31 12:46 | DS.PDOC ---
Discharge Summary General Date of Admission January 29, 2021 at 20:34 Date of Discharge 01/31/2021 Attending Physician: JESUS CALABRESE MD Specialist/Consultants Involve: SULLY ALFARO DO Discharge Summary PROCEDURES PERFORMED DURING STAY: None. ADMITTING DIAGNOSES: Acute cholecystitis Diabetes Mellitus HTN Hypothyroidism DISCHARGE DIAGNOSES: Acute cholecystitis Diabetes Mellitus HTN Hypothyroidism COMPLICATIONS/CHIEF COMPLAINT: Acute Cholecystitis. HISTORY OF PRESENT ILLNESS: 35 year old female with PMHx of DM, HTN, hypothyroidism, who presented to the ED with 24 hours of nausea and vomiting. She subsequently developed loose diarrhea and RUQ pain which she described as sharp. She was unable to keep down any food or fluids at home. ED work up revealed elevated WBC count and acute cholecystitis on CT scan. Dr. Alfaro was consulted and recommended medical management. Hospitalist team was called for admission. HOSPITAL COURSE: Patient was admitted to the medical/surgical floor and started on IV antibiotics with Zosyn. She was initially kept NPO overnight and started on a clear liquid diet the following morning. Patient tolerated this well and w as able to advance to soft foods the next day. She was switched to oral antibiotics with Augmentin for [address] Alfaro suggested outpatient follow up to consider elective cholecystectomy once the inflammation has time to resolve. The patient was discharged home with this plan. She was also instructed to keep a low fat diet. DISCHARGE MEDICATIONS: Please see below. ALLERGIES: Please see below. PHYSICAL EXAMINATION ON DISCHARGE: VITAL SIGNS: Please see below. GENERAL: Alert, comfortable, in no acute distress HEENT: Normocephalic, atraumatic, sclera anicteric, moist mucous membranes CARDIOVASCULAR: Regular rate and rhythm, normal S1 and S2. No murmurs, rubs, or gallops RESPIRATORY: Clear to auscultation bilaterally with equal air entry bilaterally. No wheezing, rhonchi, or rales. ABDOMEN: Tender to deep palpation of the RUQ. Obese, soft, nondistended, bowel sounds present. EXTREMITIES: No cyanosis or edema. Pulses 2+/4 in bilateral upper and lower extremities SKIN: [place], warm, dry NEUROLOGIC: Alert and oriented x3 to person, place and time. No focal deficits appreciated LABORATORY DATA: Please see below. IMAGING: - CT abdomen/pelvis 1. There is a diffuse decrease in hepatic parenchymal density, consistent with steatosis. 2. Diffuse thickening of the gallbladder wall with pericholecystic inflammation and minimal pericholecystic fluid. No discrete calculi demonstrated. Findings worrisome for acute cholecystitis. 3. Inflammatory changes in the hepatic flexure likely reactive related to adjacent gallbladder pathology. Primary colonic inflammation/infection not excluded in to be evaluated clinically. PROGNOSIS: Fair ACTIVITY: As tolerated. DIET: Low fat DISCHARGE PLAN/DISPOSITION: Home DISCHARGE INSTRUCTIONS: 1. Please follow up with your PCP in 7-10 days 2. Please follow up with Dr. Alfaro in 1-2 weeks to discuss outpatient cholecystectomy (gallbadder removal). 3. Please complete the full course of antibiotics. You can take the first dose this evening. 4. Continue taking all your other medications as prescribed. 5. If your symptoms return please call your PCP or return to the ED for further evaluation. ITEMS TO FOLLOWUP ON ON OUTPATIENT: Elective cholecystectomy - Dr. Alfaro DISCHARGE CONDITION: Stable. TIME SPENT ON DISCHARGE: Greater than 35 minutes. Vital Signs/I&Os Vital Signs Date Time Temp Pulse Resp B/P (MAP) Pulse Ox O2 Delivery O2 Flow Rate FiO2 01/31/21 08:00 128/78 01/31/21 06:00 98.0 89 16 97 Room Air I&O- Last 24 Hours up to 6 AM 01/31/21 06:00 Intake Total 2220 ml Output Total 1700 ml Balance 520 ml Laboratory Data Labs 24H Laboratory Tests 2 01/30/21 12:01: Bedside Glucose (Misc Panel) 155H 01/30/21 17:08: Bedside Glucose (Misc Panel) 130H 01/30/21 20:29: Bedside Glucose (Misc Panel) 156H 01/31/21 06:18: Immature Granulocyte % (Auto) 0.4, Neutrophils (%) (Auto) 62.5, Lymphocytes (%) (Auto) 25.2, Monocytes (%) (Auto) 7.9, Eosinophils (%) (Auto) 3.4H, Basophils (%) (Auto) 0.6, Neutrophils # (Auto) 7.1, Lymphocytes # (Auto) 2.9, Monocytes # (Auto) 0.9H, Eosinophils # (Auto) 0.4, Basophils # (Auto) 0.1, Nucleated Red Blood Cells % (auto) 0.0, Anion Gap 7L, Glomerular Filtration Rate > 60.0, Calci um Level 9.0, Magnesium Level 1.7L, Total Bilirubin 0.3, Aspartate Amino Transf (AST/SGOT) 12, Alanine Aminotransferase (ALT/SGPT) 12, Alkaline Phosphatase 29L, Total Protein 6.4, Albumin 2.6L, Albumin/Globulin Ratio 0.7L CBC/BMP Laboratory Tests 01/31/21 06:18 FSBS Laboratory Tests Test 01/30/21 12:01 01/30/21 17:08 01/30/21 20:29 Range/Units Bedside Glucose (Misc Panel) 155 130 156 70-105 MG/DL Microbiology Microbiology 01/29/21 Blood Culture - Preliminary, Resulted No growth after 24 hours . All specim... 01/29/21 Blood Culture - Preliminary, Resulted No growth after 24 hours . All specim... Discharge Medications Scheduled Amoxicillin/Potassium Clav (Amox-Clav 875-125 mg Tablet) 1 Each Tablet, 875 MG PO BID Chlorthalidone (Chlorthalidone) 25 Mg Tablet, 25 MG PO DAILY, (Reported) Levothyroxine Sodium (Levothyroxine Sodium) 125 Mcg Tablet, 125 MCG PO DAILY, (Reported) Lisinopril (Lisinopril) 10 Mg Tablet, 10 MG PO DAILY, (Reported) Metformin HCl (Metformin HCl ER) 500 Mg Tab.er.24h, 1,000 MG PO BID, (Reported) Norgestimate-Ethinyl Estradiol (Tri-Sprintec Tablet) 1 Each Tablet, 1 TAB PO QHS, (Reported) Allergies Coded Allergies: No Known Drug Allergies (Verified Allergy, Unknown, 01/29/21) GME ATTESTATION GME ATTESTATION My faculty preceptor for this patient encounter was physically present during the encounter and was fully available. All aspects of the patient interview, examination, medical decision making process, and medical care plan development were reviewed and approved by the faculty preceptor. The faculty preceptor is aware and concurs with the plan as stated in the body of this note and will attest to such by his/her cosignature. ATTENDING NOTE I, Jesus Calabrese MD, have independently examined this patient and performed my own physical exam, as well as reviewed the documentation and edited where necessary. I have discussed in detail with the resident / student the findings and plan of treatment as documented by the resident / student and edited their note. I agree with their findings and treatment plan and have edited their documentation. Total time spent on this discharge including coordination of care, review of chart , documentation and actual patient contact is around 32 minutes MELINDA NAIR D.O. January 31, 2021 11:10 JESUS CALABRESE MD Feb 05, 2021 09:48
== END 2021-01-31 12:28 | disposition home or self-care (01) ==
LOC: M ED 16:19 → M ED INP 20:34 → ENRESERV 21:29 → M MSPAV 22:18
PROVIDERS: ADMIT Family Medicine; ATTEND Internal Medicine
DX: K81.0 Acute cholecystitis (principal); E83.42 Hypomagnesemia; I10 Essential (primary) hypertension; E11.9 Type 2 diabetes mellitus without complications; E87.6 Hypokalemia; Z79.899 Other long term (current) drug therapy

== ENCOUNTER → 2021-02-08 | Outpatient (CLI) | payer BC ==
[~2021-02-08] MED LIST: AMOX875T2 PO; CHLO125TA PO; LEVO125T4 PO; LISI10TA22 PO; METF-838 PO; TRI-TAB PO
[2021-02-08 09:33] LABS: ALBUMIN 3.2 GM/DL (3.2-5.2); ALT/SGPT 31 U/L (12-78); BILIRUBIN,TOTAL 0.2 MG/DL (0.2-1.0); BLOOD UREA NITROGEN 10 MG/DL (7-18); CALCIUM LEVEL 9.3 MG/DL (8.5-10.1); CARBON DIOXIDE LEVEL 27 MEQ/L (21-32); CHLORIDE LEVEL 103 MEQ/L (98-107); CREATININE FOR GFR 0.65 MG/DL (0.55-1.30); FREE T4 1.54 NG/DL (0.76-1.46); GLOMERULAR FILTRATION RATE > 60.0 (>60); GLUCOSE, FASTING 110 MG/DL (70-100); POTASSIUM SERUM 3.6 MEQ/L (3.5-5.1); SODIUM LEVEL 138 MEQ/L (136-145); TOTAL PROTEIN 7.6 GM/DL (6.4-8.2)
[2021-02-08 09:41] LABS: HEMOGLOBIN A1c 7.2 %
== END ==
LOC: M LAB 08:22
PROVIDERS: ATTEND Nurse Practitioner Family
DX: E11.9 Type 2 diabetes mellitus without complications (principal)

== ENCOUNTER → 2021-02-26 | Outpatient (CLI) | payer BC ==
[~2021-02-26] MED LIST changes: +AUGM875T28 PO; +CLAR10CA3 PO
--- NOTE | 2021-02-26 23:37 | ECGEPIP ---
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 No prior ECG available for comparison at the time of interpretation. Electronically Signed on 02-26-2021 23:37:47 EDT by Duglas Hubbard
== END ==
LOC: M EKG 11:14
PROVIDERS: ATTEND Surgery
DX: Z01.818 Encounter for other preprocedural examination (principal)

== ENCOUNTER → 2021-02-27 | Outpatient (CLI) | payer BC ==
[~2021-02-27] MED LIST changes: -AUGM875T28 PO
== END ==
LOC: M LABSMTC 11:16
PROVIDERS: ATTEND Anesthesiology
DX: Z01.818 Encounter for other preprocedural examination (principal); Z11.52 Encounter for screening for COVID-19

== ENCOUNTER 2021-03-04 12:03 | Day surgery (SDC) | payer BC ==
[~2021-03-04] VITALS: Ht 180.3 cm; Wt 118.4 kg
[~2021-03-04 12:03] MED LIST changes: +LR 1,000 ML IV ONE; +ceFAZolin SOD 2 GM in IV 1 EA IV ONE
[2021-03-04] MEDS ORDERED: METOCLOPRAMIDE INJ 10MG/2ML VIAL (J2765 PER 1) As Ordered ONE (12:34)
[2021-03-04] MEDS ORDERED: ROCURONIUM BROMIDE 50 MG/5 ML VIAL As Ordered ONE ×2 (12:34→14:00)
[2021-03-04] MEDS ORDERED: ONDANSETRON 4MG/2ML VIAL As Ordered ONE (12:34)
[2021-03-04] MEDS ORDERED: MIDAZOLAM INJ 2MG/2ML VIAL (J2250 PER 1MG) As Ordered ONE (12:34)
[2021-03-04] MEDS ORDERED: KETOROLAC 60MG 2ML VIAL As Ordered ONE (12:34)
[2021-03-04] MEDS ORDERED: propofoL 200 MG/20 ML VIAL As Ordered ONE (12:34)
[2021-03-04] MEDS ORDERED: ACETAMINOPHEN 1000MG 100ML IV BTL (OFIRMEV) (J0131 PER 10MG) As Ordered ONE (12:34)
[2021-03-04] MEDS ORDERED: dexameTHASONE 4 MG/ML 1ML VIAL (J1100 PER 1MG) As Ordered ONE (12:34)
[2021-03-04] MEDS ORDERED: LIDOCAINE 2% 100MG/5ML SDV (FOR ANES.) As Ordered ONE (12:34)
[2021-03-04] MEDS ORDERED: fentaNYL 100 MCG/2 ML INJECTION (J3010) As Ordered ONE (12:34)
[2021-03-04] MEDS ORDERED: BUPIVACAINE/EPIN 0.25% 30 ML VIAL As Ordered ONE (12:35)
[2021-03-04] MEDS ORDERED: SCOPOLAMINE 1MG TRANSDERMAL PATCH TOP ONE (12:55)
[2021-03-04] MEDS ORDERED: SUGAMMADEX SODIUM 500 MG/5 ML VIAL (BRIDION) As Ordered ONE (14:11)
[2021-03-04] MEDS ORDERED: ESMOLOL INJ 100MG/10ML VIAL As Ordered ONE (14:16)
[2021-03-04] MEDS ORDERED: ONDANSETRON 4MG/2ML VIAL IV PRN (14:35)
[2021-03-04] MEDS ORDERED: oxyCODONE 5MG TAB PO PRN (14:35)
[2021-03-04] MEDS ORDERED: MEPERIDINE INJ 25 MG/ML VIAL (J2175) IV PRN (14:35)
[2021-03-04] MEDS ORDERED: METOCLOPRAMIDE INJ 10MG/2ML VIAL (J2765 PER 1) IV PRN (14:35)
[2021-03-04] MEDS ORDERED: LR 1,000 ML IV SCH (14:35)
[2021-03-04] MEDS ORDERED: NORCO, ANEXSIA 5/325MG TABLET (HYDROcodone/ACETAMINOPHEN) PO PRN (14:40)
[2021-03-04] MEDS: fentaNYL 100 MCG/2 ML INJECTION (J3010) IV PRN ×4 (14:43→14:58)
[2021-03-04 15:52] VITALS: BP 182/87
[2021-03-04] MEDS ORDERED: AUGM875T28 PO (16:33)
--- NOTE | 2021-03-05 08:06 | RO ---
OPERATIVE NOTE DATE OF OPERATION: 03/04/2021 PREOPERATIVE DIAGNOSIS: Cholecystitis. POSTOPERATIVE DIAGNOSIS: Cholecystitis. PROCEDURE: Robotic cholecystectomy. SURGEON: Drew Alfaro DO ASSIST: Marilyn Mijares ANESTHESIA: General. EBL: 5 mL. COMPLICATIONS: None. INDICATIONS FOR PROCEDURE: The patient is a 36-year-old female who presents to the hospital with acute cholecystitis after discharge had recommendations to proceed with outpatient elective cholecystectomy. Risks and benefits of the procedure, not limited to but including bleeding, infection, hernia, bile leak, damage to surrounding structures, and need for further surgery were discussed in detail with the patient. Informed consent was obtained and procedure was planned. PROCEDURE: The patient was brought back to operating room 7. After sufficient sedation, the abdomen was sterilely prepped and draped. Next, time out was done to confirm proper patient and proper procedure. Following that, an 8 mm incision was made in left upper quadrant, Veress needle was inserted, and the abdomen was insufflated to 15 mmHg. The Veress needle was removed and an 8 mm Optiview port was used to gain access to the abdomen. Once the abdomen was entered, the abdomen was examined. Three more ports were placed across the upper abdomen into right upper quadrant. The robot was then docked to the ports. Once the robot was docked the omental adhesions were dissected free from the gallbladder. The gallbladder was still firm and distended with some surrounding edema. The gallbladder was elevated up toward the right shoulder. The cystic duct and cystic artery were carefully dissected free using combination of blunt and sharp dissection. It was very difficult dissection with a lot of scar tissue surrounding the neck of the gallbladder. Once that was completed and both the duct and artery clipped, the gallbladder was dissected free from the gallbladder fossa using electrocautery, gallbladder placed inside of a 5 mm Endo Catch bag and brought out through the right lateral port site. Abdomen was then examined to confirm hemostasis. The abdomen was then desufflated. The skin incisions were closed with 4-0 Vicryl subcuticular sutures. The abdomen was cleaned and dried. Steri-Strips, 4 x 4, and tape were applied. This ended the procedure.
== END 2021-03-04 16:02 | disposition home or self-care (01) ==
LOC: M SDC 12:03
PROVIDERS: ATTEND Surgery
DX: K81.0 Acute cholecystitis (principal); I10 Essential (primary) hypertension; E11.9 Type 2 diabetes mellitus without complications; E03.9 Hypothyroidism, unspecified; Z79.84 Long term (current) use of oral hypoglycemic drugs; Z79.899 Other long term (current) drug therapy
CPT/HCPCS: 47562; 81025; 88304; J0131; J0690; J1100; J1885; J2250; J2405; J2765; J3010; S2900

== ENCOUNTER → 2021-09-04 | Outpatient (CLI) | payer BC ==
[~2021-09-04] MED LIST changes: +AUGM875T28 PO; -LR 1,000 ML IV ONE; -ceFAZolin SOD 2 GM in IV 1 EA IV ONE
[2021-09-04 11:22] LABS: ALBUMIN 3.3 GM/DL (3.2-5.2); ALT/SGPT 31 U/L (12-78); BILIRUBIN,TOTAL 0.2 MG/DL (0.2-1.0); BLOOD UREA NITROGEN 15 MG/DL (7-18); CALCIUM LEVEL 9.3 MG/DL (8.5-10.1); CARBON DIOXIDE LEVEL 28 MEQ/L (21-32); CHLORIDE LEVEL 103 MEQ/L (98-107); CHOLESTEROL LEVEL 166 MG/DL (<200); CHOLESTEROL RISK RATIO 3.531 (<5); CREATININE FOR GFR 0.66 MG/DL (0.55-1.30); FREE T4 1.25 NG/DL (0.76-1.46); GLOMERULAR FILTRATION RATE > 60.0 (>60); GLUCOSE, FASTING 107 MG/DL (70-100); HDL CHOLESTEROL 47 MG/DL (>40); LDL CHOLESTEROL 67 MG/DL (<100); NON-HDL-C 119 MG/DL; POTASSIUM SERUM 3.7 MEQ/L (3.5-5.1); SODIUM LEVEL 138 MEQ/L (136-145); TOTAL PROTEIN 7.5 GM/DL (6.4-8.2); TRIGLYCERIDES LEVEL 259 MG/DL (<150)
[2021-09-04 13:05] LABS: MALB URINE SIEMENS 27.1 MG/L
== END ==
LOC: M LAB 10:14
PROVIDERS: ATTEND Nurse Practitioner Family
DX: E11.9 Type 2 diabetes mellitus without complications (principal); E03.9 Hypothyroidism, unspecified

== ENCOUNTER → 2021-12-10 | Outpatient (CLI) | payer BC ==
[2021-12-10 10:43] LABS: HEMOGLOBIN A1c 6.6 %
[2021-12-10 11:07] LABS: FREE T4 1.27 NG/DL (0.76-1.46); THYROID STIMULATING HORMONE 4.75 uIU/ML (0.358-3.740)
== END ==
LOC: M LAB 09:04
PROVIDERS: ATTEND Family Medicine
DX: E11.9 Type 2 diabetes mellitus without complications (principal); E03.9 Hypothyroidism, unspecified

== ENCOUNTER → 2022-01-23 | Outpatient (REF) | payer BC | LOC: M LAB REF 15:54 | PROVIDERS: ATTEND Surgery | DX: L72.3 Sebaceous cyst (principal) ==

== ENCOUNTER → 2022-06-13 | Outpatient (CLI) | payer BC ==
[2022-06-13 12:08] LABS: MALB URINE SIEMENS 19.7 MG/L; MAU/CREAT RATIO 15.7 MCG/MG (0.0-30.0)
[2022-06-13 12:23] LABS: ALBUMIN 3.6 GM/DL (3.2-5.2); ALT/SGPT 47 U/L (12-78); BILIRUBIN,TOTAL 0.3 MG/DL (0.2-1.0); BLOOD UREA NITROGEN 15 MG/DL (7-18); CALCIUM LEVEL 9.6 MG/DL (8.5-10.1); CARBON DIOXIDE LEVEL 29 MEQ/L (21-32); CHLORIDE LEVEL 101 MEQ/L (98-107); CHOLESTEROL LEVEL 192 MG/DL (<200); CHOLESTEROL RISK RATIO 3.555 (<5); CREATININE FOR GFR 0.66 MG/DL (0.55-1.30); FREE T4 1.25 NG/DL (0.76-1.46); GLOMERULAR FILTRATION RATE > 60.0 (>60); GLUCOSE, FASTING 110 MG/DL (70-100); HDL CHOLESTEROL 54 MG/DL (>40); LDL CHOLESTEROL 91 MG/DL (<100); NON-HDL-C 138 MG/DL; POTASSIUM SERUM 3.5 MEQ/L (3.5-5.1); SODIUM LEVEL 137 MEQ/L (136-145); TOTAL PROTEIN 8.3 GM/DL (6.4-8.2); TRIGLYCERIDES LEVEL 233 MG/DL (<150)
[2022-06-13 13:07] LABS: HEMOGLOBIN A1c 6.7 %
== END ==
LOC: M LAB 10:46
PROVIDERS: ATTEND Nurse Practitioner Family
DX: E11.9 Type 2 diabetes mellitus without complications (principal)

== ENCOUNTER → 2022-12-17 | Outpatient (CLI) | payer BC ==
[2022-12-17 11:01] LABS: HEMOGLOBIN A1c 7.2 % (4.0-6.0)
[2022-12-17 11:08] LABS: ALBUMIN 3.1 G/DL (3.2-5.2); ALKALINE PHOSPHATASE 26 U/L (46-116); ALT/SGPT 24 U/L (7.0-40); AST/SGOT 24 U/L (<34); BILIRUBIN,TOTAL 0.2 MG/DL (0.3-1.2); BLOOD UREA NITROGEN 16 MG/DL (9-23); CARBON DIOXIDE LEVEL 28 MMOL/L (20-31); CHLORIDE LEVEL 105 MMOL/L (98-107); CREATININE FOR GFR 0.66 MG/DL (0.55-1.30); GLOMERULAR FILTRATION RATE > 60.0 (>60); GLUCOSE, FASTING 122 MG/DL (60-100); POTASSIUM SERUM 4.1 MMOL/L (3.5-5.1); SODIUM LEVEL 140 MMOL/L (136-145); TOTAL PROTEIN 6.7 G/DL (5.7-8.2)
[2022-12-17 11:10] LABS: FREE T4 1.12 NG/DL (0.89-1.76); THYROID STIMULATING HORMONE 3.292 uIU/ML (0.55-4.78)
== END ==
LOC: M LAB 10:04
PROVIDERS: ATTEND Nurse Practitioner Family
DX: I10 Essential (primary) hypertension (principal); E11.9 Type 2 diabetes mellitus without complications; E03.9 Hypothyroidism, unspecified

== ENCOUNTER → 2023-09-25 | Outpatient (CLI) | payer OTHER ==
[2023-09-25 11:50] LABS: HEMOGLOBIN A1c 6.3 % (4.0-6.0)
== END ==
LOC: M LAB 10:17
PROVIDERS: ATTEND Nurse Practitioner Family
DX: E11.9 Type 2 diabetes mellitus without complications (principal)

== ENCOUNTER → 2023-12-24 | Outpatient (CLI) | payer OTHER ==
[2023-12-24 12:02] LABS: HEMOGLOBIN A1c 7.2 % (4.0-6.0)
== END ==
LOC: M LAB 10:49
PROVIDERS: ATTEND Nurse Practitioner Family
DX: E11.9 Type 2 diabetes mellitus without complications (principal)

== ENCOUNTER → 2024-01-06 | Outpatient (CLI) | payer OTHER ==
[2024-01-06 11:11] LABS: FREE T4 1.11 NG/DL (0.89-1.76); THYROID STIMULATING HORMONE 2.899 uIU/ML (0.55-4.78)
== END ==
LOC: M LAB 10:15
PROVIDERS: ATTEND Nurse Practitioner Family
DX: E03.9 Hypothyroidism, unspecified (principal)

== ENCOUNTER → 2024-01-19 | Outpatient (CLI) | payer OTHER | LOC: M RAD 13:46 | PROVIDERS: ATTEND Nurse Practitioner Family | DX: E03.9 Hypothyroidism, unspecified (principal) ==

== ENCOUNTER → 2024-02-17 | Outpatient (REF) | payer OTHER ==
[2024-02-17 13:44] LABS: FREE T4 1.18 NG/DL (0.89-1.76); THYROID STIMULATING HORMONE 5.4 uIU/ML (0.55-4.78)
== END ==
LOC: M LABDRWAD 12:22
PROVIDERS: ATTEND Nurse Practitioner Family
DX: E06.3 Autoimmune thyroiditis (principal)

== ENCOUNTER → 2024-04-01 | Outpatient (CLI) | payer OTHER ==
[2024-04-01 15:23] LABS: HEMOGLOBIN A1c 7.9 % (4.0-6.0)
== END ==
LOC: M LAB 14:46
PROVIDERS: ATTEND Nurse Practitioner Family
DX: E11.9 Type 2 diabetes mellitus without complications (principal)

== ENCOUNTER → 2024-05-26 | Outpatient (REF) | payer OTHER ==
[2024-05-26 14:50] LABS: FREE T4 1.57 NG/DL (0.89-1.76); THYROID STIMULATING HORMONE 1.059 uIU/ML (0.55-4.78)
== END ==
LOC: M LABDRWAD 12:51
PROVIDERS: ATTEND Nurse Practitioner Family
DX: E06.3 Autoimmune thyroiditis (principal)

== ENCOUNTER → 2024-07-01 | Outpatient (REF) | payer OTHER ==
[2024-07-01 14:05] LABS: HEMOGLOBIN A1c 6.6 % (4.0-6.0)
== END ==
LOC: M LABDRWAD 13:04
PROVIDERS: ATTEND Nurse Practitioner Family
DX: E11.9 Type 2 diabetes mellitus without complications (principal)

== ENCOUNTER → 2024-12-30 | Outpatient (REF) | payer OTHER ==
[2024-12-30 18:46] LABS: HEMOGLOBIN A1c 6.4 % (4.0-6.0)
[2024-12-30 18:54] LABS: FREE T4 1.31 NG/DL (0.89-1.76)
[2024-12-30 18:55] LABS: CREATININE, URINE 114.6 MG/DL; MAU/CREAT RATIO 4.3 MCG/MG (0.0-30.0)
[2024-12-30 18:57] LABS: ALBUMIN 3.2 G/DL (3.2-5.2); ALKALINE PHOSPHATASE 24 U/L (35-104); ALT/SGPT 21 U/L (7.0-40); AST/SGOT 18 U/L (<34); BILIRUBIN,TOTAL 0.2 MG/DL (0.3-1.2); BLOOD UREA NITROGEN 16 MG/DL (9-23); CALCIUM LEVEL 9.7 MG/DL (8.5-10.1); CARBON DIOXIDE LEVEL 27 MMOL/L (20-31); CHLORIDE LEVEL 102 MMOL/L (98-107); CHOLESTEROL LEVEL 171 MG/DL (<200); CHOLESTEROL RISK RATIO 2.78 (<5); CREATININE FOR GFR 0.65 MG/DL (0.55-1.30); GLOMERULAR FILTRATION RATE > 90.0 (>60); GLUCOSE, FASTING 89 MG/DL (60-100); HDL CHOLESTEROL 61.3 MG/DL (>40); LDL CHOLESTEROL 72.9 MG/DL (<100); NON-HDL-C 109.7 MG/DL; SODIUM LEVEL 141 MMOL/L (136-145); TOTAL PROTEIN 7.1 G/DL (5.7-8.2); TRIGLYCERIDES LEVEL 184 MG/DL (<150)
== END ==
LOC: M LABDRWAD 17:15
PROVIDERS: ATTEND Nurse Practitioner Family
DX: E03.9 Hypothyroidism, unspecified (principal); I10 Essential (primary) hypertension; E11.9 Type 2 diabetes mellitus without complications

== ENCOUNTER → 2025-07-03 | Outpatient (REF) | payer OTHER ==
[2025-07-03 14:03] LABS: ESTIMATED AVERAGE GLUCOSE 148.0 MG/DL (60-110)
== END ==
LOC: M LABDRWAD 12:58
PROVIDERS: ATTEND Nurse Practitioner Family
DX: E11.9 Type 2 diabetes mellitus without complications (principal)